=== PATIENT | male | born 1950 | race Caucasian/White ===

== ENCOUNTER 2023-07-26 07:52 | Emergency (ER) | payer OTHER, BC ==
[2023-07-26] MEDS ORDERED: DALBAVANCIN HCL 1,500 MG in DEXTROSE 5%-WATER - 500 ML IVPB ONE (08:05)
[2023-07-26] MEDS ORDERED: KETOROLAC TROMETHAMINE 15 MG/ML VIAL IVPUSH ONE (08:05)
[2023-07-26 08:12] VITALS: BP 144/88; PULSE 87; RESP 16; TEMP 98.7; BMI 25.8
[2023-07-26] MEDS ORDERED: KETOROLAC TROMETHAMINE 15 MG/ML VIAL ONE (08:36)
[2023-07-26 09:52] LABS: HEMATOCRIT 46.5 % (35.4-49); HEMOGLOBIN 15.5 G/dL (11.7-16.9); MCH 30.8 pg (25.7-33.7); MCHC 33.4 g/dl (32.0-35.9); MEAN CELL VOLUME 92.3 fl (80-96); MEAN PLT VOLUME 7.6 fl (7.5-11.1); PLATELET COUNT 187.3 10^3/uL (134-434); RBC 5.04 10^6/uL (4.00-5.60); RDW 13.8 % (11.9-15.9); WHITE BLOOD COUNT 6.8 10^3/uL (4.0-10.8)
[2023-07-26 09:56] LABS: ALBUMIN 4.6 g/dl (3.4-5.0); BILIRUBIN,TOTAL 0.9 mg/dl (0.2-1); CALCIUM 9.8 mg/dl (8.5-10.1); POTASSIUM 4.1 mmol/L (3.5-5.1); TOT PROT 7.4 g/dl (6.4-8.2)
[2023-07-26 10:10] LABS: URIC ACID 7.2 mg/dl (2.6-7.2)
[2023-07-26 12:03] LABS: PLATELET ESTIMATE ADEQUATE
== END 2023-07-26 10:46 | disposition home or self-care (01) ==
LOC: FER 07:52
PROC: 3E03329 Introduction of Other Anti-infective into Peripheral Vein, Percutaneous Approach (ICD-10-PCS; principal; 2023-07-26)
PROC: 3E0333Z Introduction of Anti-inflammatory into Peripheral Vein, Percutaneous Approach (ICD-10-PCS; 2023-07-26)
DX: M79.671 Pain in right foot (principal); L53.9 Erythematous condition, unspecified; R22.41 Localized swelling, mass and lump, right lower limb; L03.115 Cellulitis of right lower limb
CPT/HCPCS: 36415; 73630-TC-RT-FY; 80053; 84550; 85025; 87040; 99284-25; J0875